=== PATIENT | female | born 1940 | race Caucasian/White ===

== ENCOUNTER 2017-07-20 02:03 | Emergency (ER) | payer MEDICARE ==
--- NOTE | 2017-07-20 02:21 | ER Document Report ---
ED Respiratory Problem - General Stated Complaint: DIFFICULTY BREATHING Time Seen by Provider: 07/20/17 02:06 Mode of Arrival: Medic Information source: Patient Notes: Patient presents complaining of difficulty breathing that started yesterday evening around 5 PM after cleaning out the cat litter box. Patient states she has had wheezing and coughing. Patient complains of generalized fatigue. Patient denies any fever. Patient does have a history of COPD and states she does have a chronic cough. Patient states that she has had some upper abdominal discomfort off and on over the past 6 weeks but denies any chest discomfort. Patient states that her abdominal discomfort is not painful TRAVEL OUTSIDE OF THE [place] IN LAST 30 DAYS: No - HPI Patient complains to provider of: COPD, Cough, Short of breath Initiating Event: Exposure to dust Quality of pain: No pain Pain Level: Denies Context: Hx COPD Cough: Nonproductive Associated symptoms: Cough, Difficulty breathing, Wheezing. denies: Chest pain/ discomfort, Fever Similar symptoms previously: Yes Recently seen / treated by doctor: No - Related Data Allergies/Adverse Reactions: acetaminophen [From Tylenol] Allergy (Verified 10/04/14 18:48) azithromycin [Azithromycin] Allergy (Verified 10/04/14 18:48) ibuprofen [From Advil] Allergy (Verified 10/04/14 18:48) naproxen sodium [From Aleve] Allergy (Verified 10/04/14 18:48) oxycodone [Oxycodone] Allergy (Verified 10/04/14 18:48) Shellfish * [Shellfish] Allergy (Verified 10/04/14 18:48) Sulfa (Sulfonamide Antibiotics) Allergy (Verified 10/04/14 18:48) "mycins" Allergy (Uncoded 10/04/14 18:48) arthritis medication Allergy (Uncoded 10/04/14 18:48) Past Medical History - General Information source: Patient - Social History Smoking Status: Former Smoker Frequency of alcohol use: None Drug Abuse: None Occupation: none Lives with: Family Family History: Hypertension - Past Medical History Cardiac Medical History: Reports: Hx Coronary Artery Disease, Hx Heart Attack, Hx Hypercholesterolemia, Hx Hypertension, Hx Peripheral Vascular Disease - NEEDS RENAL ARTERY STENT Pulmonary Medical History: Reports: Hx COPD Endocrine Medical History: Reports: Hx Hypothyroidism GI Medical History: Reports: Hx Gastroesophageal Reflux Disease Musculoskeltal Medical History: Reports Hx Arthritis Psychiatric Medical History: Reports: Hx Depression Past Surgical History: Reports: Hx Abdominal Surgery, Hx Cardiac Surgery - stents 09/2009, Hx Cholecystectomy, Hx Coronary Stent, Hx Hysterectomy, Hx Tonsillectomy - Immunizations Hx Pneumococcal Vaccination: 11/22/12 Review of Systems - Review of Systems Constitutional: No symptoms reported. denies: Fever, Recent illness EENT: No symptoms reported Cardiovascular: No symptoms reported. denies: Chest pain Respiratory: Cough, Short of breath, Wheezing Gastrointestinal: No symptoms reported. denies: Abdominal pain, Nausea, Vomiting Genitourinary: No symptoms reported Female Genitourinary: No symptoms reported Musculoskeletal: No symptoms reported. denies: Back pain Skin: No symptoms reported Hematologic/Lymphatic: No symptoms reported Neurological/Psychological: No symptoms reported Physical Exam - General General appearance: Appears well, Alert In distress: None - HEENT Head: Normocephalic, Atraumatic Eyes: Normal Nasal: Normal Mouth/Lips: Normal Mucous membranes: Normal Pharynx: Normal Neck: Normal, Supple. No: Lymphadenopathy - Respiratory Respiratory status: Tachypnea Chest status: Nontender Breath sounds: Nonproductive cough, Wheezing Chest palpation: Normal - Cardiovascular Rhythm: Regular Heart sounds: S1 appreciated, S2 appreciated Murmur: No - Abdominal Inspection: Normal Distension: No distension Bowel sounds: Normal Tenderness: Nontender Organomegaly: No organomegaly - Back Back: Normal, Nontender. No: CVA tenderness - Extremities General upper extremity: Normal inspection, Normal ROM General lower extremity: Normal inspection, Normal ROM - Neurological Neuro grossly intact: Yes Cognition: Normal [place] Coma Scale Eye Opening: Spontaneous [place] Coma Scale Verbal: Oriented [place] Coma Scale Motor: Obeys Commands [place] Coma Scale Total: 15 - Psychological Associated symptoms: Normal affect, Normal mood - Skin Skin Temperature: Warm Skin Moisture: Dry Skin Color: Normal Course - Re-evaluation Re-evalutation: 07/20/17 03:10 pt with wheezing bilaterally, nebulizer treatment ordered. Patient's respirations even and unlabored 07/20/17 patient's respirations 04:20 Pt's resp unlabored, patient speaking full sentences without any difficulty. 07/20/[address] tested per RN, RN reports that patient ambulated without any dyspnea, tachycardia or worsening hypoxia. Consulted with dr Becker who agrees with discharge plan of care. 07/20/17 06:20 Patient speaking full sentences without any dyspnea or tachypnea. Vital signs stable. Discussed worsening signs or symptoms that patient should return immediately for. Patient and family verbalized understanding and agree with plan of care. - Laboratory Result Diagrams: 07/20/17 02:55 07/20/17 02:55 Laboratory results interpreted by me: 07/20/17 07/20/17 07/20/17 02:55 02:55 03:35 Hct 35.7 L ABG pO2 67.7 L ABG Total CO2 25.3 H Glucose 153 H Calcium 10.6 H Labs- Entire Visit 07/20/17 07/20/17 07/20/17 02:55 02:55 02:55 WBC 9.0 RBC 4.07 Hgb 12.0 Hct 35.7 L MCV 88 MCH 29.5 MCHC 33.6 RDW 13.6 Plt Count 193 Seg Neutrophils % 73.6 Lymphocytes % 17.2 Monocytes % 6.0 Eosinophils % 2.5 Basophils % 0.7 Absolute Neutrophils 6.6 Absolute Lymphocytes 1.6 Absolute Monocytes 0.5 Absolute Eosinophils 0.2 Absolute Basophils 0.1 Carbonic Acid HCO3/H2CO3 Ratio ABG pH ABG pCO2 ABG pO2 ABG HCO3 ABG Total CO2 ABG O2 Saturation ABG Base Excess FiO2 Sodium 138.3 Potassium 3.6 Chloride 99 Carbon Dioxide 29 Anion Gap 10 BUN 16 Creatinine 0.77 Est GFR ( Amer) > 60 Est GFR (Non-Af Amer) > 60 Glucose 153 H Calcium 10.6 H Total Bilirubin 0.3 Direct Bilirubin 0.3 Indirect Bilirubin Not Reportable Neonat Total Bilirubin Not Reportable AST 31 ALT 36 Alkaline Phosphatase 67 Creatine Kinase 103 CK-MB (CK-2) 3.56 Troponin I 0.027 Total Protein 7.2 Albumin 4.1 Lipase 95.5 07/20/17 03:35 WBC RBC Hgb Hct MCV MCH MCHC RDW Plt Count Seg Neutrophils % Lymphocytes % Monocytes % Eosinophils % Basophils % Absolute Neutrophils Absolute Lymphocytes Absolute Monocytes Absolute Eosinophils Absolute Basophils Carbonic Acid 1.13 HCO3/H2CO3 Ratio 21:1 ABG pH 7.43 ABG pCO2 37.6 ABG pO2 67.7 L ABG HCO3 24.1 ABG Total CO2 25.3 H ABG O2 Saturation 94.0 ABG Base Excess 0 FiO2 21% Sodium Potassium Chloride Carbon Dioxide Anion Gap BUN Creatinine Est GFR ( Amer) Est GFR (Non-Af Amer) Glucose Calcium Total Bilirubin Direct Bilirubin Indirect Bilirubin Neonat Total Bilirubin AST ALT Alkaline Phosphatase Creatine Kinase CK-MB (CK-2) Troponin I Total Protein Albumin Lipase - Diagnostic Test Radiology reviewed: Reports reviewed Discharge - Discharge Clinical Impression: COPD exacerbation, Hx of essential hypertension Condition: Stable Disposition: HOME, SELF-CARE Instructions: Chronic Obstructive Lung Disease ([facility]), Inhaled Bronchodilators ( [facility]), Steroid Medication Additional Instructions: Return immediately for any new or worsening symptoms Followup with your primary care provider, call this morning to make a followup appointment Use your inhaler that you have at home as directed Prescriptions: Prednisone [Deltasone 20 mg Tablet] 2 tab PO DAILY 4 Days tablet Forms: Elevated Blood Pressure Referrals: GLENN MULTANI MD [Primary Care Provider] - Follow up tomorrow
[2017-07-20 03:11] LABS: ABSOLUTE BASOPHILS # (AUTO) 0.1 10^3/uL (0.0-0.2); ABSOLUTE EOSINOPHILS # (AUTO) 0.2 10^3/uL (0.0-0.6); ABSOLUTE LYMPHOCYTES (AUTO) 1.6 10^3/uL (0.5-4.7); ABSOLUTE MONOCYTES (AUTO) 0.5 10^3/uL (0.1-1.4); ABSOLUTE NEUT (AUTO) 6.6 10^3/uL (1.7-8.2); BASOPHILS % (AUTO) 0.7 % (0-2); EOSINOPHILS % (AUTO) 2.5 % (0-6); HEMATOCRIT 35.7 % (36.0-47.0); HGB HCT DIFFERENCE 0.3; LYMPHOCYTES % (AUTO) 17.2 % (13-45); MEAN CORPUSCULAR HEMOGLOBIN 29.5 pg (27.0-33.4); MEAN CORPUSCULAR HGB CONC 33.6 g/dL (32.0-36.0); MEAN CORPUSCULAR VOLUME 88 fl (80-97); RED BLOOD COUNT 4.07 10^6/uL (3.72-5.28); RED CELL DISTRIBUTION WIDTH 13.6 % (11.5-14.0); SEGMENTED NEUTROPHILS % (AUTO) 73.6 % (42-78)
[2017-07-20] MEDS ORDERED: IPRATROPIUM/ALBUTEROL 0.5-2.5 MG/3 ML AMPUL NEB ONE (03:16)
[2017-07-20 03:23] LABS: ALANINE AMINOTRANSFERASE 36 U/L (9-52); ALBUMIN 4.1 g/dL (3.5-5.0); ALKALINE PHOSPHATASE 67 U/L (38-126); ANION GAP 10 (5-19); ASPARTATE AMINO TRANSFERASE 31 U/L (14-36); BILIRUBIN,DIRECT 0.3 mg/dL (0.0-0.4); BILIRUBIN,TOTAL 0.3 mg/dL (0.2-1.3); BLOOD UREA NITROGEN 16 mg/dL (7-20); CALCIUM 10.6 mg/dL (8.4-10.2); CARBON DIOXIDE 29 mmol/L (22-30); CHLORIDE 99 mmol/L (98-107); CREATINE KINASE 103 U/L (30-135); CREATININE RESULT 0.77 mg/dL (0.52-1.25); GLUCOSE 153 mg/dL (75-110); LIPASE 95.5 U/L (23-300); POTASSIUM 3.6 mmol/L (3.6-5.0); SODIUM 138.3 mmol/L (137-145); TOTAL PROTEIN 7.2 g/dL (6.3-8.2)
[2017-07-20 03:34] LABS: CREATINE KINASE MB 3.56 ng/mL (<4.55); TROPONIN I 0.027 ng/mL
[2017-07-20 03:49] LABS: ARTERIAL BLOOD BASE EXCESS 0 mmol/L
[2017-07-20] MEDS ORDERED: ALBUTEROL SULFATE 0.083% NEB 2.5 MG/3 ML AMPUL NEB ONE (04:19)
--- NOTE | 2017-07-20 04:32 | RADIOLOGY REPORT (SQ) ---
EXAM DESCRIPTION: CHEST PA/LAT COMPLETED DATE/TIME: 07/20/2017 4:23 am REASON FOR STUDY: cough COMPARISON: None. EXAM PARAMETERS: NUMBER OF VIEWS: two views TECHNIQUE: Digital Frontal and Lateral radiographic views of the chest acquired. RADIATION DOSE: NA LIMITATIONS: none FINDINGS: LUNGS AND PLEURA: Moderate emphysematous hyperinflation. Moderate interstitial markings. MEDIASTINUM AND HILAR STRUCTURES: No masses or contour abnormalities. HEART AND VASCULAR STRUCTURES: Heart normal size. No evidence for failure. Atherosclerosis. BONES: No acute findings. HARDWARE: None in the chest. OTHER: No other significant finding. IMPRESSION: No acute cardiopulmonary findings. TECHNICAL DOCUMENTATION: JOB ID: [id number] [employer]- All Rights Reserved
--- NOTE | 2017-07-20 12:24 | EKG REPORT ---
SEVERITY:- ABNORMAL ECG - SINUS RHYTHM BORDERLINE RIGHT AXIS DEVIATION REPOL ABNRM SUGGESTS ISCHEMIA, DIFFUSE LEADS : Confirmed by: Christal Rodriges MD 20-Jul-2017 12:23:22
== END 2017-07-20 06:20 | disposition home or self-care (01) ==
LOC: ER 02:03
DX: J44.1 Chronic obstructive pulmonary disease with (acute) exacerbation (principal); I10 Essential (primary) hypertension; I25.2 Old myocardial infarction; I25.10 Atherosclerotic heart disease of native coronary artery without angina pectoris; R53.83 Other fatigue; R05 Cough; R19.8 Other specified symptoms and signs involving the digestive system and abdomen; Z88.6 Allergy status to analgesic agent; Z88.1 Allergy status to other antibiotic agents; Z88.5 Allergy status to narcotic agent; Z88.2 Allergy status to sulfonamides; Z91.013 Allergy to seafood; Z88.8 Allergy status to other drugs, medicaments and biological substances; Z95.5 Presence of coronary angioplasty implant and graft
CPT/HCPCS: 93005; 94640 ×2; 99285; 36415; 87040; 82553; 82803; 82550; 83690; 85025; 80053; 84484; 71020; 93010; A9270 ×2; J7620

== ENCOUNTER 2017-09-07 11:36 | Emergency (ER) | payer MEDICARE ==
[2017-09-07 12:34] LABS: ABSOLUTE BASOPHILS # (AUTO) 0.1 10^3/uL (0.0-0.2); ABSOLUTE EOSINOPHILS # (AUTO) 0.4 10^3/uL (0.0-0.6); ABSOLUTE LYMPHOCYTES (AUTO) 1.7 10^3/uL (0.5-4.7); ABSOLUTE MONOCYTES (AUTO) 0.7 10^3/uL (0.1-1.4); ABSOLUTE NEUT (AUTO) 5.5 10^3/uL (1.7-8.2); HEMATOCRIT 41.3 % (36.0-47.0); HEMOGLOBIN 14.1 g/dL (12.0-15.5); LYMPHOCYTES % (AUTO) 19.9 % (13-45); MEAN CORPUSCULAR HEMOGLOBIN 29.4 pg (27.0-33.4); MEAN CORPUSCULAR VOLUME 87 fl (80-97); MONOCYTES % (AUTO) 8.2 % (3-13); RED BLOOD COUNT 4.77 10^6/uL (3.72-5.28); RED CELL DISTRIBUTION WIDTH 13.7 % (11.5-14.0); SEGMENTED NEUTROPHILS % (AUTO) 65.9 % (42-78); VENOUS BLOOD BASE EXCESS 4.9 mmol/L; VENOUS BLOOD HCO3 31.2 mmol/L (20-32); VENOUS BLOOD PCO2 52.2 mmHg (35-63); VENOUS BLOOD PH 7.39 (7.30-7.42); WHITE BLOOD COUNT 8.3 10^3/uL (4.0-10.5)
[2017-09-07 12:41] LABS: PROTHROMBIN TIME 12.5 SEC (11.4-15.4)
--- NOTE | 2017-09-07 12:54 | RADIOLOGY REPORT (SQ) ---
EXAM DESCRIPTION: CHEST SINGLE VIEW COMPLETED DATE/TIME: 09/07/2017 12:35 pm REASON FOR STUDY: cxr, DB COMPARISON: 07/20/2017, 10/04/2014, 01/19/2013 EXAM PARAMETERS: NUMBER OF VIEWS: One view. TECHNIQUE: Single frontal radiographic view of the chest acquired. RADIATION DOSE: NA LIMITATIONS: None. FINDINGS: LUNGS AND PLEURA: Lungs are hyperlucent and hyperinflated from obstructive disease. Calcified granuloma left upper lobe, benign. No focal infiltrates. No pleural effusion. No pneumothorax. MEDIASTINUM AND HILAR STRUCTURES: No masses. Contour normal. HEART AND VASCULAR STRUCTURES: Heart normal in size. Normal vasculature. BONES: No acute findings. HARDWARE: None in the chest. OTHER: No other significant finding. IMPRESSION: Obstructive lung disease. No acute findings TECHNICAL DOCUMENTATION: JOB ID: [id number]
--- NOTE | 2017-09-07 13:25 | EKG REPORT ---
SEVERITY:- OTHERWISE NORMAL ECG - SINUS RHYTHM BORDERLINE RIGHT AXIS DEVIATION : Confirmed by: Christal Rodriges MD 07-Sep-2017 13:24:43
[2017-09-07 13:43] LABS: ALANINE AMINOTRANSFERASE 29 U/L (9-52); ALBUMIN 4.6 g/dL (3.5-5.0); ALKALINE PHOSPHATASE 64 U/L (38-126); ANION GAP 13 (5-19); ASPARTATE AMINO TRANSFERASE 23 U/L (14-36); BILIRUBIN,DIRECT 0.4 mg/dL (0.0-0.4); BILIRUBIN,TOTAL 0.4 mg/dL (0.2-1.3); BLOOD UREA NITROGEN 12 mg/dL (7-20); CALCIUM 11.8 mg/dL (8.4-10.2); CARBON DIOXIDE 30 mmol/L (22-30); CHLORIDE 99 mmol/L (98-107); CREATINE KINASE 78 U/L (30-135); CREATININE RESULT 0.77 mg/dL (0.52-1.25); GLUCOSE 94 mg/dL (75-110); POTASSIUM 4.3 mmol/L (3.6-5.0); TOTAL PROTEIN 8.3 g/dL (6.3-8.2)
[2017-09-07] MEDS ORDERED: IPRATROPIUM/ALBUTEROL 0.5-2.5 MG/3 ML AMPUL NEB ONE (13:44)
[2017-09-07 13:55] LABS: CREATINE KINASE MB 2.92 ng/mL (<4.55)
[2017-09-07 13:56] LABS: TROPONIN I < 0.012 ng/mL
[2017-09-07] MEDS ORDERED: LEVOFLOXACIN 500 MG TABLET PO ONE (14:57)
[2017-09-07] MEDS ORDERED: PREDNISONE 20 MG TABLET PO ONE (14:57)
--- NOTE | 2017-09-07 15:02 | ER Document Report ---
ED General - General Chief Complaint: Breathing Difficulty Stated Complaint: DIFFICULTY BREATHING Time Seen by Provider: 09/07/17 12:05 TRAVEL OUTSIDE OF THE [place] IN LAST 30 DAYS: No - HPI Patient complains to provider of: Shortness of breath Notes: Patient coming in for evaluation shortness of breath. Patient has a history of COPD. Patient states was at her PCPs office and was told to come to the ER for evaluation and admission. Patient states shortness of breath or last few days cough productive for the last few days as well no recent antibiotic changes. Patient states she is on bronchodilators neb treatment and inhalers. States that she has been compliant with this medication no recent travel patient denies any pain denies any hip pain chest pain abdominal pain nausea vomiting fevers chills diarrhea. - Related Data Allergies/Adverse Reactions: acetaminophen [From Tylenol] Allergy (Verified 09/07/17 11:44) azithromycin [Azithromycin] Allergy (Verified 09/07/17 11:44) ibuprofen [From Advil] Allergy (Verified 09/07/17 11:44) naproxen sodium [From Aleve] Allergy (Verified 09/07/17 11:44) Shellfish * [Shellfish] Allergy (Verified 09/07/17 11:44) Sulfa (Sulfonamide Antibiotics) Allergy (Verified 09/07/17 11:44) "mycins" Allergy (Uncoded 10/04/14 18:48) arthritis medication Allergy (Uncoded 10/04/14 18:48) Home Medications: Current Home Medications Levothyroxine Sodium 75 mcg PO DAILY 09/07/17 [History] Nitroglycerin [Nitrostat 0.4 mg (1/150 Gr) Tabs 25/Bottle] 1 tab SL Q5MP PRN [History] Oxycodone HCl/Acetaminophen [Oxycodon-Acetaminophen 7.5-325] 1 tab PO TID [History] Promethazine HCl 25 mg PO PRN PRN 09/07/17 [History] Past Medical History - Social History Smoking Status: Former Smoker Chew tobacco use (# tins/day): No Frequency of alcohol use: None Drug Abuse: None Family History: Hypertension - Past Medical History Cardiac Medical History: Reports: Hx Coronary Artery Disease, Hx Heart Attack - stent 2008, Hx Hypercholesterolemia, Hx Hypertension, Hx Peripheral Vascular Disease - NEEDS RENAL ARTERY STENT Pulmonary Medical History: Reports: Hx COPD - no home O2 Endocrine Medical History: Reports: Hx Hypothyroidism Renal/ Medical History: Denies: Hx Peritoneal Dialysis GI Medical History: Reports: Hx Gastroesophageal Reflux Disease Musculoskeltal Medical History: Reports Hx Arthritis Psychiatric Medical History: Reports: Hx Depression Past Surgical History: Reports: Hx Abdominal Surgery, Hx Appendectomy - abd lymphnoidectomy, Hx Cardiac Surgery - stent x1 09/2009, Hx Cholecystectomy, Hx Coronary Stent, Hx Hysterectomy, Hx Tonsillectomy - Immunizations Hx Diphtheria, Pertussis, Tetanus Vaccination: Yes Hx Pneumococcal Vaccination: 11/22/12 Review of Systems - Review of Systems Constitutional: No symptoms reported EENT: No symptoms reported Cardiovascular: No symptoms reported Respiratory: Short of breath Gastrointestinal: No symptoms reported Genitourinary: No symptoms reported Female Genitourinary: No symptoms reported Musculoskeletal: No symptoms reported Skin: No symptoms reported Hematologic/Lymphatic: No symptoms reported Neurological/Psychological: No symptoms reported Physical Exam - Vital signs Vitals: Temp Pulse BP Pulse Ox 97.4 F 73 180/63 H 93 09/07/17 11:41 09/07/17 11:41 09/07/17 11:41 09/07/17 11:41 Interpretation: Normal - General General appearance: Appears well, Alert - HEENT Head: Normocephalic, Atraumatic Eyes: Normal Pupils: PERRL - Respiratory Respiratory status: No respiratory distress Chest status: Nontender Breath sounds: Rhonchi, Wheezing Chest palpation: Normal - Cardiovascular Rhythm: Regular Heart sounds: Normal auscultation Murmur: No - Abdominal Inspection: Normal Distension: No distension Bowel sounds: Normal Tenderness: Nontender Organomegaly: No organomegaly - Back Back: Normal, Nontender - Extremities General upper extremity: Normal inspection, Nontender, Normal color, Normal ROM , Normal temperature General lower extremity: Normal inspection, Nontender, Normal color, Normal ROM , Normal temperature, Normal weight bearing. No: Mary's sign - Neurological Neuro grossly intact: Yes Cognition: Normal Orientation: AAOx4 [place] Coma Scale Eye Opening: Spontaneous [place] Coma Scale Verbal: Oriented [place] Coma Scale Motor: Obeys Commands [place] Coma Scale Total: 15 Speech: Normal Motor strength normal: LUE, RUE, LLE, RLE Sensory: Normal - Psychological Associated symptoms: Normal affect, Normal mood - Skin Skin Temperature: Warm Skin Moisture: Dry Skin Color: Normal Course - Re-evaluation Re-evalutation: 09/07/17 15:03 Patient was evaluated in ER no abnormal laboratory values or abnormal chest x- ray findings. Patient case was discussed with PCP recommended oral prednisone and Levaquin for treatment. Patient is to continue her home bronchodilators as well.Patient and family agrees with plan will discharge home - Vital Signs Vital signs: Temp Pulse Resp BP Pulse Ox 97.4 F 73 14 148/60 H 95 09/07/17 11:41 09/07/17 11:41 09/07/17 13:01 09/07/17 13:01 09/07/17 13:01 - Laboratory Result Diagrams: 09/07/17 12:15 09/07/17 12:15 Laboratory results interpreted by me: 09/07/17 12:15 Calcium 11.8 H Total Protein 8.3 H Discharge - Discharge Clinical Impression: COPD exacerbation Condition: Good Disposition: HOME, SELF-CARE Instructions: Chronic Obstructive Lung Disease ([facility]) Additional Instructions: Follow-up with your primary care physician in 3-5 days.Return to the ER symptoms worsen. Please continue home medications as previously prescribed.We will prescribe you prednisone and Levaquin as well as these are oral steroids and antibiotics take as prescribed. Prescriptions: Levofloxacin 500 mg PO DAILY #9 tablet Prednisone [Deltasone 20 mg Tablet] 2 tab PO DAILY 5 Days tablet Referrals: GLENN MULTANI MD [Primary Care Provider] - Follow up as needed
[2017-09-07 15:18] VITALS: BP 165/87
== END 2017-09-07 15:15 | disposition home or self-care (01) ==
LOC: ER 11:36
DX: J44.1 Chronic obstructive pulmonary disease with (acute) exacerbation (principal); R06.02 Shortness of breath; R05 Cough; I25.10 Atherosclerotic heart disease of native coronary artery without angina pectoris; I10 Essential (primary) hypertension; I25.2 Old myocardial infarction; Z79.899 Other long term (current) drug therapy; Z88.6 Allergy status to analgesic agent; Z88.1 Allergy status to other antibiotic agents; Z91.013 Allergy to seafood; Z88.2 Allergy status to sulfonamides; Z88.8 Allergy status to other drugs, medicaments and biological substances; Z87.891 Personal history of nicotine dependence; Z95.5 Presence of coronary angioplasty implant and graft
CPT/HCPCS: 93005; 94640; 99285; 36415; 82553; 82550; 85025; 85610; 80053; 84484; 82803; 71010; 93010; A9270 ×3; J7512; J7620